=== PATIENT | male | born 1970 | race Caucasian/White ===

== ENCOUNTER 2025-01-20 16:59 | Emergency (ER) | payer MEDICAID, SELFPAY ==
--- OUTSIDE RECORDS SUMMARY | 2025-01-20 17:12 | XMS_ITS | Clinical Summary ---
Author Organization [facility] Address [address] [place] [place] [address] Care Team Providers Care Bias Cutter Helper Name Role Phone Unavailable Primary Care Provider Unavailabl e Source Comments The following information is NOT included in Care Everywhere downloads:Psychiatric notes, ECG results, Cardiac Rehab notes, Pulmonary Function notes, data from [employer] (includes but not limited toPregnancy data,audiograms, eye exams, pre-surgical evaluation notes, well-child exam data).[facility] Allergies No known active allergies Medications albuterol (PROVENTIL HFA) INHALATION HFA inhaler (VENTOLIN,PROAI R,PROVENTIL) 90mcg Inhale 2 Puffs by mouth every 4 hours as needed. 05/23/2024 Active ARIPiprazole (ABILIFY) 20 MG tablet Take 20 mg by mouth daily. 11/08/2023 Active aspirin 81 MG chewable tablet Take 81 mg by mouth daily. Active atorvastatin (LIPITOR) 20 mg tablet Take 20 mg by mouth at bedtime. 05/13/2023 Active bictegravir-emt ricitab-tenofov (Biktarvy) 50-200-25 MG TABS tablet Take 1 Tablet by mouth daily. 04/13/2024 Active CARvedilol (COREG) 6.25 MG tablet Take 6.25 mg by mouth 2 times daily (with meals). 05/24/2023 Active fluticasone (FLONASE) 50 mcg/act nasal inhaler 1 [place] at bedtime. 04/20/2024 Active gabapentin (NEURONTIN) 100 MG capsule Take 100 mg by mouth 2 times daily. 04/13/2024 Active pantoprazole (PROTONIX) 20 MG tablet Take 20 mg by mouth daily. 11/08/2023 Active trazodone (DESYREL) 100 MG tablet Take 100 mg by mouth at bedtime. Active sildenafil citrate (VIAGRA) 50 MG tablet Take 50 mg by mouth as needed. 11/02/2022 Active hydrOXYzine (ATARAX) 25 MG tablet Take 1 Tablet by mouth every 6 hours as needed for Anxiety. 30 Tablet 05/28/2024 1:01 PM EST 05/28/2024 Active benzonatate (TESSALON) 200 MG capsule Take 1 Capsule by mouth 3 times daily as needed (cough). 30 Capsule 05/28/2024 1:01 PM EST 05/28/2024 Active Active Problems Problem Noted Date Diagnosed Date Hypoxia 05/25/2024 Assessment & Plan (05/27/2024 3:43 PM EST): -ED reported O2 sat 89% in ED when ambulating -CXR with no acute findings -titrate supplemental oxygen to maintain SpO2>92% -weaned to RA today, was able to maintain SpO2 at 91% -will attempt WOPX today if feeling winded / SOB can defer until tomorrow Assessment & Plan (05/26/2024 8:17 AM EST): -ED reported O2 sat 89% in ED when ambulating -CXR with no acute findings -walking pulse ox prior to dischage Assessment & Plan (05/25/2024 6:49 PM EST): -ED reported O2 sat 89% in ED when ambulating -CXR with no acute findings -walking pulse ox prior to dischage RSV bronchiolitis 05/25/2024 Assessment & Plan (05/27/2024 7:15 AM EST): - +RSV 05/23, recently treated at -CXR with no acute findings -Afebrile , Leukocytosis 21.5, 17.2 improving likely steroid induced vs infectious process -respiratory glass bulb silverer, IS, BPH -continue Mucinex, prednisone Assessment & Plan (05/26/2024 12:24 PM EST): - +RSV 1, recently treated at -CXR with no acute findings -Afebrile , Leukocytosis 21.5 likely steroid induced vs infectious process -respiratory glass bulb silverer, IS, BPH -continue Mucinex, prednisone Assessment & Plan (05/25/2024 6:49 PM EST): +for RSV 05/23 -CXR with no acute findings -respiratory glass bulb silverer, IS, BPH -continue Mucinex -continue prednisone Asymptomatic HIV infection, with no history of HIV-related illness 05/25/2024 Assessment & Plan (05/27/2024 7:15 AM EST): -continue Biktarvy Assessment & Plan (05/26/2024 8:17 AM EST): -continue Biktarvy Assessment & Plan (05/25/2024 6:49 PM EST): -continue Biktarvy Gastroesophageal reflux disease 05/25/2024 Assessment & Plan (05/27/2024 7:15 AM EST): -continue PPI Assessment & Plan (05/26/2024 8:17 AM EST): -continue PPI Assessment & Plan (05/25/2024 6:49 PM EST): -continue PPI Smoker 05/25/2024 Tobacco use 05/25/2024 Assessment & Plan (05/27/2024 7:15 AM EST): -cessation encouraged -nicotine patch Assessment & Plan (05/26/2024 8:17 AM EST): -cessation encouraged -nicotine patch Assessment & Plan (05/25/2024 6:49 PM EST): -cessation encouraged -nicotine patch Polysubstance abuse 06/01/2023 Assessment & Plan (05/27/2024 7:15 AM EST): -currently lives in [facility] for substance abuse Assessment & Plan (05/26/2024 8:17 AM EST): -currently lives in [facility] for substance abuse Assessment & Plan (05/25/2024 6:49 PM EST): -currently lives in [facility] for substance abuse Hypertension 04/28/2023 Assessment & Plan (05/27/2024 7:15 AM EST): -continue coreg 6.25 mg BID Assessment & Plan (05/26/2024 8:17 AM EST): -continue coreg 6.25 mg BID Assessment & Plan (05/25/2024 6:49 PM EST): -continue coreg 6.25 mg BID Borderline personality disorder 03/25/2023 Assessment & Plan (05/27/2024 7:15 AM EST): -continue Abilify 20 mg daily Assessment & Plan (05/26/2024 8:17 AM EST): -continue Abilify 20 mg daily Assessment & Plan (05/25/2024 6:49 PM EST): -continue Abilify 20 mg daily Anxiety 02/22/2023 Assessment & Plan (05/27/2024 7:15 AM EST): -continue atarax PRN Assessment & Plan (05/26/2024 8:17 AM EST): -continue atarax PRN Assessment & Plan (05/25/2024 6:49 PM EST): -continue atarax PRN Mixed hyperlipidemia 01/30/2023 Assessment & Plan (05/27/2024 7:15 AM EST): -continue asa and statin Assessment & Plan (05/26/2024 8:17 AM EST): -continue asa and statin Assessment & Plan (05/25/2024 6:49 PM EST): -continue asa and statin ADHD (attention deficit hyperactivity disorder) 01/30/2023 Perirectal abscess 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 No 05/25/2024 Humiliation, Afraid, Rape, and Kick questionnair e Answer Date Recorded Fear of Current or Ex-Partner Not on file Within the last year, have y ou been humiliated or emotionally abused in other ways by your partner or ex-partner? No 05/25/2024 Physically Abused Not on file 05/25/2024 Sexually Abused Not on file 05/25/2024 Hunger Vital Sign Answer Date Recorded Within the past 12 months, y ou worried that your food would run out before you got the money to buy more. Sometimes true Ran Out of Food in the Last Year Not on file 05/25/2024 PRAPARE - Transportation Answer Date Re corded In the past 12 months, has l ack of transportation kept you from medical appointments or from getting medications? Yes 05/25/2024 Lack of Transportation (Non-Medical) Not on file 05/25/2024 Housing Stability Vital Sign Answer Nasim e Recorded In the last 12 months, was t here a time when you were not able to pay the mortgage or rent on time? No 05/25/2024 Number of Times Moved in the Last Year Not on fi le 05/25/2024 Homeless in the Last Year Not on file 2024 Utilities - Historical Answer Date Jhonatan rded In the past 12 months has th e Cir[employer], oil, or water Desigual threatened to shut off services in your home? No 05/25/2024 Sex and Gender Information Value Date Recorded Sex Assigned at Not on file Legal Sex Male 3:19 PM EST Gender Identity Not on file Sexual Orientation Not on file Last Filed Vital Signs Vital Sign Reading Time Taken Comments Blood Pressure 114/80 05/28/2024 8:10 AM EST Pulse 84 05/28/2024 11:56 AM EST Temperature 36.6 C (97.9 F) 05/28/2024 8:10 AM EST Respiratory Rate 20 05/28/2024 11:5 6 AM EST Oxygen Saturation 92% 05/28/2024 8:10 AM EST Inhaled Oxygen Concentration - - Weight 103.9 kg (229 lb 1.6 oz) 05/25/2024 6:37 PM EST Height 172.7 cm (5' 8 ) 05/25/2024 5:45 PM EST Body Mass Index 34.83 05/25/2024 5:45 PM EST Plan of Treatment Health Maintenance Due Date Last Done Comments Anal Pap 1969 CD4 Count 1969 Colonoscopy 1969 Dental Visit/Referral 1969 HIV Counseling 1969 HIV Viral Load 1969 Hepatitis A Antibody 1969 Hepatitis B Surface Antibody 1969 Hepatitis B Surface Antigen 1969 Syphilis Test 1969 TB Test 1969 Toxoplasma IgG 1969 Urine Total Protein (HIV) 1969 Meningococcal Conjugate (MCV4,ACWY) Vaccine (1 - Risk 2-dose series) 09/10/1971 COVID-19 Vaccine (#1) 1974 STI Screening (HIV) 1985 Hepatitis C Antibody 09/10/1987 Tdap Booster 09/10/1987 Pneumococcal Vaccine(s) (50+ yrs) (1 of 2 - PCV) 1988 Shingles (RZV) Vaccine (1 of 2) 1988 CRC Screening 2014 Cologuard (Stool DNA) 2014 FIT 2014 Hepatitis B (HBV) Vaccine (3 of 3 - 19+ 3-dose series) 06/13/2019 04/18/2019, 04/28/2018 Lipid Profile 04/28/2024 04/28/2023 HIV Depression Screening 08/23/2024 HIV EtOH Screening 08/23/2024 HIV SA Screening 08/23/2024 Influenza Vaccine (#1) 2025 03/10/2020 Basic Metabolic Panel 05/28/2025 05/28/2024 , 05/26/2024, 05/25/2024, Additional history exists Hepatitis A (HAV) Vaccine Completed 02/06/2019, Haemophilus Influenza B (Hib) Vaccine Aged Out No longer eligible based on patient's age to complete this topic Procedures Procedure Name Priority Date/Time Associated Diagnosis Comments BASIC METABOLIC PANEL Routine 05/28/2024 3:25 AM EST from Last 3 Months or Most Recently Relevant to Health Maintenance Results * BASIC METABOLIC PANEL (05/28/2024 3:25 AM EST) Glucose 84 74 - 109 mg/dL 05/28/2024 4:50 AM EST [facility] Sodium 139 136 - 145 mmol/L 05/28/2024 4:50 AM EST [facility] Potassium 4.1 3.5 - 5.0 mmol/L 05/28/2024 4:50 AM EST [facility] Carbon Dioxide 30 21 - 31 mmol/L 05/28/2024 4:50 AM EST [facility] Chloride 103 98 - 107 mmol/L 05/28/2024 4:50 AM EST [facility] Blood Urea Nitrogen 22 7 - 25 mg/dL 05/28/2024 4:50 AM EST [facility] Creatinine 0.82 0.70 - 1.30 mg/dL 05/28/2024 4:50 AM EST [facility] Calcium 8.9 8.6 - 10.3 mg/dL 05/28/2024 4:50 AM EST [facility] Anion Gap 10 - 05/28/2024 4:50 AM EST [facility] Estimated GFR (CKD-EPI) 104 >=60 mL/min/1. 73sqm 05/28/2024 4:50 AM EST [facility] Comment: 2020 CKD EPI Equation using Creatinine without Race Comment: Estimated glomerular filtration rate (eGFR) is calculated without a race coefficient. Values should be interpreted in the context of the patient's full clinical presentation. Reference: 1. Jose A C, Concha M, Thomas DE JESUS, et al.. A Unifying Approach for GFR Estimation: Recommendations of the NKF-ASN Task Force on Reassessing the Inclusion of Race in Diagnosing Kidney Disease. [place] Journal of Kidney Diseases 202;79(2):268- 88.e1. 2. N Engl J Med 2021 Vol. 385 Issue 19 Pages 8125-9788 Blood BLOOD SPECIMEN / Unknown Venipuncture / Unknown 05/28/2024 3:25 AM EST 05/28/2024 4:14 AM EST Johnathon Simth RESIDENCE MANAGER-DYED YARN OPERATOR 98 GENERAL LAB Final Res ult [facility] [address] from Last 3 Months or Most Recently Relevant to Health Maintenance Insurance [facility] MEDICAID Advance Directives * Full Code (Latest Code Status on File) Date Activated Date Inactivated Comments 05/25/2024 6:38 PM 05/28/2024 4:40 PM Question Answer Comments Documentation of decision pr ocess for this code status: Discussed with patient or surrogate. This is the code status chosen by the patient/surrogate.
--- OUTSIDE RECORDS SUMMARY | 2025-01-20 17:12 | XMS_ITS | Clinical Summary ---
Author Organization [facility] Address [address] [id number] Care Team Providers Care Director Of Retention Name Role Phone Shahriar Shah DO Unavailable [phone] Nusrat Michaud Primary Care Provider [phone] Allergies No known active allergies Medications cariprazine (VRAYLAR) 4.5 mg capsule Take 20 mg in the morning and also Take 4.5 mg at bedtime 60 capsule 4 Active bictegravir-emtr icitabine-tenofo vir alafenamide (BIKTARVY) 50-200-25 mg per tablet Take 1 tablet by mouth once daily. 30 tablet 5 4 Active carvedilol (COREG) 6.25 mg tablet Take 1 tablet by mouth two times a day with meals. 60 tablet 2 4 Active gabapentin (NEURONTIN) 100 mg capsule Take 1 capsule by mouth two times a day for 90 days. 60 capsule [address] (PROTONIX) 20 mg tablet Take 1 tablet by mouth once daily. 30 tablet 2 4 Active atorvastatin (LIPITOR) 20 mg tablet Take 1 tablet by mouth daily at bedtime. 30 tablet 2 4 Active azithromycin (ZITHROMAX Z-DAVID) 250 mg tablet Two (2) tablets by mouth the first day and then one (1) tablet by mouth daily for 4 days. 6 tablet 4 Active dextromethorphan -guaiFENesin (MUCINEX DM) 30-600 mg per tablet Take 1 tablet by mouth two times a day. 20 tablet 4 Active fluticasone (FLONASE) 50 mcg/actuation nasal spray Use 1 [place] in each nostril daily at bedtime. 16 g 4 Active albuterol HFA (PROVENTIL HFA, VENTOLIN HFA) 90 mcg/actuation inhaler Inhale 2 Puffs as instructed every 6 hours as needed for wheezing/shortn ess of breath. 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 DDD (degenerative disc disease), cervical 2014 Arthritis Neck pain Shoulder pain Smoker Family History Medical History Relation Comments Diabetes Father Hypertension Father Relation Status Comments Father Social History Tobacco Use Types Packs/Day Years Used Date Smoking Tobacco: Every Day Cigarettes 1 33 Tobacco Cessation:Ready to Q uit: Not Asked; Counseling Given: Not Answered Alcohol Use Standard Drinks/Week Comments Not Currently 0 (1 standard drink = 0.6 oz pur e alcohol) social Hunger Vital Sign Answer Date Recorded Within the past 12 months, y ou worried that your food would run out before you got the money to buy more. Never true 05/23/19 25 Ran Out of Food in the Last Year Not on file 05/23/2024 Area Deprivation Index Answer Date Jhonatan rded National Score (1-100), lower number is lower ri sk 97 06/28/2024 State Score (1-10), lower number is lower risk 1 0 06/28/2024 Data from: https://www.neighborhoodatlas.medicine.[facility].edu/. 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 Not on file Not on file Not on fi le Last Filed Vital Signs Vital Sign Reading Time Taken Comments Blood Pressure 127/75 05/23/2024 3:58 PM EST Pulse 110 05/23/2024 3:58 PM EST Temperature 36.9 C (98.5 F) 05/23/2024 1:13 PM EST Respiratory Rate 26 05/23/2024 3:58 PM EST Oxygen Saturation 93% 05/23/2024 3:58 PM EST Inhaled Oxygen Concentration - - Weight 105.9 kg (233 lb 7.5 oz) 07/30/2024 2:13 PM EDT Height 171.1 cm (5' 7.36 ) 07/30/2024 2:13 PM ED T Body Mass Index 36.17 07/30/2024 2:13 PM EDT Plan of Treatment Health Maintenance Due Date Last Done Comments Meningococcal Conjugate Vaccine (1 - Risk 2-dose series) 09/10/1971 Anxiety Screening 09/10/1987 Depression Screening 09/10/1987 Hepatitis C Screening 09/10/1987 MMR Vaccine (1 of 2 - Risk 2-dose series) 09/10/1987 DTaP,Tdap,Td Vaccine (1 - Tdap) 1988 Pneumococcal Vaccine: 50+ (1 of 2 - PCV) 1988 Shingrix Vaccine (1 of 2) [address] Colonography 2014 Cologuard (FIT-DNA) 2014 Colonoscopy 2014 Colorectal Cancer Screening 2014 Fecal Occult Blood 2014 Prostate Cancer Screening Discussion 2014 Sigmoidoscopy 2014 Hepatitis B Vaccine (3 of 3 - 19+ 3-dose series) 06/13/2019 04/18/2019, 04/28/2018 Lung Cancer Screening 09/10/2019 Influenza Vaccine (#1) 2025 03/10/2020 Diabetes Screening 05/28/2027 05/28/2024, 0 05/28/2024, 05/26/2024, Additional history exists Hepatitis A Vaccine Completed 02/06/2019, 01/21/2019, 04/28/2018 Hib Vaccine Aged Out No longer eligi ble based on patient's age to complete this topic Procedures Procedure Name Priority Date/Time Associated Diagnosis Comments COMPREHENSIVE METABOLIC PANEL STAT 05/23/2024 1:47 PM EST from Last 3 Months or Most Recently Relevant to Health Maintenance Results * (ABNORMAL) COMPREHENSIVE METABOLIC PANEL (05/23/2024 1:47 PM EST) Protein, Total 7.1 6.3 - 8.0 g/dL 05/23/2024 2:13 PM EST [facility] Albumin 4.0 3.9 - 4.9 g/dL 05/23/2024 2:13 PM EST [facility] Calcium, Total 8.8 8.5 - 10.2 mg/dL 05/23/2024 2:13 PM EST [facility] Bilirubin, Total 0.3 0.2 - 1.3 mg/dL 05/23/2024 2:13 PM EST [facility] Alkaline Phosphatase 124(H) 38 - 113 U/L 05/23/2024 2:13 PM EST [facility] AST 21 14 - 40 U/L 05/23/2024 2:13 PM EST [facility] ALT 28 10 - 54 U/L 05/23/2024 2:13 PM EST [facility] Glucose 116(H) 74 - 99 mg/dL 05/23/2024 2:13 PM EST [facility] Comment: The [place] Diabetes Association (ADA) provides guidance for cutoff values for fasting glucose and random glucose. The ADA defines fasting as no caloric intake for at least 8 hours. Fasting plasma glucose results between 100 to 125 mg/dL indicate increased risk for diabetes (prediabetes). Fasting plasma glucose results greater than or equal to 126 mg/dL meet the criteria for diagnosis of diabetes. In the absence of unequivocal hyperglycemia, results should be confirmed by repeat testing. In a patient with classic symptoms of hyperglycemia or hyperglycemic crisis, random plasma glucose results greater than or equal to 200 mg/dL meet the criteria for diagnosis of diabetes. Reference: Standards of Medical Care in Diabetes 2016, [place] Diabetes Association. Diabetes Care. 2016.39(Suppl 1). BUN 14 9 - 24 mg/dL 05/23/2024 2:13 PM EST [facility] Creatinine 1.10 0.73 - 1.22 mg/dL 05/23/2024 2:13 PM EST [facility] Sodium 142 136 - 144 mmol/L 05/23/2024 2:13 PM EST [facility] Potassium 3.8 3.7 - 5.1 mmol/L 05/23/2024 2:13 PM EST [facility] Chloride 105 98 - 107 mmol/L 05/23/2024 2:13 PM EST [facility] CO2 28 22 - 30 mmol/L 05/23/2024 2:13 PM EST [facility] Anion Gap 9 8 - 15 mmol/L 05/23/2024 2:13 PM EST [facility] Estimated Glomerular Filtration Rate 80 >=60 mL/min/1. 73m 05/23/2024 2:13 PM EST [facility] Comment:Estimated Glomerular Filtration Rate (eGFR) is calculated using the 2020 CKD-EPI creatinine equation. This equation utilizes serum creatinine, sex, and age as parameters. The creatinine assay has traceable calibration to isotope dilution- mass spectrometry. Refer to KDIGO guidelines for clinical interpretation. In patients with unstable renal function, e.g. those with acute kidney injury, the eGFR may not accurately reflect actual GFR. Blood BLOOD SPECIMEN / Unknown Venipuncture / Unknown 05/23/2024 1:47 PM EST 05/23/2024 1:51 PM EST us Marysol Santamaria DO LABORATORY Final R esult [facility] [address] [place] [address], from Last 3 Months or Most Recently Relevant to Health Maintenance Insurance [employer] Care Teams Director Of Retention Relationship Specialty Start Date End Date Nusrat Michaud [address] [facility] [address] PCP - General Family Medicine 05/23/24 Shahriar Shah DO Referring Orthopedics 04/10/15
--- OUTSIDE RECORDS SUMMARY | 2025-01-20 17:12 | XMS_ITS | Clinical Summary ---
Author Organization [facility] Address [address] [place] [address] Care Team Providers Care Piece Dyeing Machine Tender Name Role Phone Unavailable Primary Care Provider Unavailabl e Source Comments PLEASE NOTE, if this patient is a minor, it may be UNLAWFUL to discuss sensitive information that is contained in these records (such as FAMILY PLANNING, MENTAL HEALTH or SUBSTANCE ABUSE) with the minor patient's parent or other person without the patient's specific authorization.[facility] Medications carvediloL (COREG) 6.25 mg tabletIndications :Primary hypertension Take 1 Tablet by mouth 2 (two) times daily with a meal 60 Tablet 1 07/10/2024 Active BIKTARVY 50-200-25 mg tabIndications:HI V infection, unspecified symptom status (CMS & HHS-HCC) TAKE 1 TABLET BY MOUTH DAILY 30 Tablet 08/24/2024 Active pantoprazole (PROTONIX) 20 mg EC tablet TAKE 1 TABLET BY MOUTH DAILY 30 Tablet 09/03/2024 Active Encounters Date Type Department Care Team Description 11/22/2024 Interim Notes Care [place] [id number] [facility] [address] [place] [address] [place] from Last 3 Months Social History Tobacco Use Types Packs/Day Years Used Date Smoking Tobacco: Every Day Cigarettes Tobacco Cessation:Ready to Q uit: No; Counseling Given: Yes Comments:Smoking 2 cigarette daily. Sex and Gender Information Value Date Recorded Sex Assigned at Male 06/02/2024 7:55 PM PST Legal Sex Male 7:55 PM PST Gender Identity Male 06/02/2024 7:55 PM PST Sexual Orientation Bisexual 06/02/2024 7: 55 PM PST Last Filed Vital Signs Vital Sign Reading Time Taken Comments Blood Pressure 126/85 07/10/2024 1:11 PM EST Pulse 100 07/10/2024 1:11 PM EST Temperature 36.9 C (98.4 F) 07/10/2024 1:11 PM EST Respiratory Rate 18 07/10/2024 1:11 PM EST Oxygen Saturation 96% 07/10/2024 1:11 PM EST Inhaled Oxygen Concentration - - Weight - - Height 172.7 cm (5' 8 ) 07/10/2024 1:11 PM EST Body Mass Index - - Plan of Treatment Health Maintenance Due Date Last Done Comments Anxiety Screening 1969 Hepatitis B Screening 1969 Hepatitis C Screening 1969 LTBI Screening (#1) 1969 Lipid Screening 1969 Imm-Meningococcal (1 - Risk 2-dose series) 09/10/1971 Imm-MMR (1 of 2 - Risk 2-dose series) 09/10/1987 Imm-DTaP/Tdap/Td (1 - Tdap) 1988 Imm-Pneumococcal 50+ (1 of 2 - PCV) 1988 Imm-Zoster, Recombinant (1 of 2) 1988 CT Colonography 2014 Colonoscopy 2014 Colorectal Cancer Screening 2014 FIT/gFOBT 2014 Fecal DNA 2014 Flexible Sigmoidoscopy 2014 Imm-Hepatitis B (3 of 3 - 19+ 3-dose series) 06/13/2019 04/18/2019, 04/28/2018 HIV Screening 01/25/2020 01/24/2019 Alcohol and Drug Screen 05/09/2024 Depression Annual Screen 05/09/2024 [id number] ( - season) 2025 Imm-Influenza (#1) 2025 03/10/2020 Tobacco Cessation Counseling (#1) 07/10/2025 07/10/2024 Diabetes Screening 05/28/2027 05/28/2024, 0 05/28/2024, 05/26/2024, Additional history exists Imm-Hepatitis A Completed 02/06/2019, 01/07, 04/28/2018 Imm-HIB Aged Out No longer eligi ble based on patient's age to complete this topic
[2025-01-20 17:29] VITALS: BP 119/83; PULSE 104; TEMP 37.4; O2SAT 94; BMI 35.0
[2025-01-20 18:08] LABS: SARS-CoV-2 Ag POSITIVE (NEGATIVE)
--- NOTE | 2025-01-20 18:31 | ED_ITS ---
HPI HPI - General Adult General Chief complaint: Eye Problems Stated complaint: EYE, EAR, THROAT IS HURTING Time Seen by Provider: 01/20/25 18:01 Source: patient Mode of arrival: walk-in Limitations: no limitations History of Present Illness HPI narrative: 54-year-old male presents with cough, nasal congestion, right ear pain, and right eye discharge for the past 2 days. He reports whitish eye discharge without vision changes. No blurry vision or missing villeda of vision. Mild non specific headache. He feels febrile at home and has chills with body aches, though has not measured temperature or taken [id number] medications. Denies chest pressure, shortness of breath, abdominal pain, nausea, vomiting, diarrhea, or other associated symptoms. Nothing makes symptoms better or worse. No prior interventions attempted.. Related Data Home Medications ?Medication ?Instructions ?Recorded ?Confirmed alprazolam 0.5 mg tablet 0.5 mg PO .q 12 PRN anxiety 01/20/25 01/20/25 atorvastatin 20 mg tablet 20 mg PO QAM 01/20/25 bictegravir 50 mg-emtricitabine 1 tab PO QAM 01/20/25 01/20/25 200 mg-tenofovir alafenam 25 mg tablet (Biktarvy) buspirone 10 mg tablet 10 mg PO .q8 01/20/25 cariprazine 3 mg capsule (Vraylar) 3 mg PO Q24H 01/20/25 carvedilol 6.25 mg tablet 6.25 mg PO Q12H 01/20/25 gabapentin 100 mg capsule 100 mg PO Q12H 01/20/2501/07 magnesium oxide 400 mg (241.3 mg 400 mg PO QDAY 01/20/25 magnesium) tablet multivitamin-ferrous 1 tab PO Q24H 01/20/2501/20 fumarate-folic acid 18 mg-400 mcg tablet (Tab-A-Marty Multivitamin w-iron) pantoprazole 20 mg tablet,delayed 20 mg PO QDAY 01/20/25 release sildenafil 100 mg tablet 100 mg PO Q24H PRN erectile 01/20/25 01/20/25 dysfunction trazodone 100 mg tablet 100 mg PO .qhs PRN insomnia 01/20/25 01/20/25 Previous Rx's ?Medication ?Instructions ?Recorded dextromethorphan-guaifenesin 30 1 tab PO Q12H PRN coug h #14 tabs 01/20/25 mg-600 mg tablet extended [id number] hr (Mucinex DM) ipratropium bromide 21 mcg (0.03 2 spray intranasal TI D #30 mL 01/20/25 %) nasal spray moxifloxacin 0.5 % eye drops 1 drp ophthalmic (eye) TI D 7 days 01/20/25 (Vigamox) #3 mL Allergies Allergy/AdvReac Type Severity Reaction Status Date / Time No Known Drug Allergies Allergy Verified 01/20/25 17:22 Opioid HPI Opioid Management Most Recent Opioid Data: Last Pain Scale 5 Today, 17:29 PFSH PFSH Social History Little interest or pleasure in doing things: not at all Feeling down, depressed, or hopeless: not at all Exam Narrative Exam Narrative: Exam: * General: Appears ill but in no acute distress, alert and oriented ?3 * HEENT: * Right eye: white discharge from eye consistent with conjunctivitis, conj unctiva not significantly injected, no photophobia * Sinuses: No tenderness on percussion * TMs: Bulging, no erythema * Nasal congestion with clear secretions * Pharynx: Erythematous, no exudate * No nuchal rigidity, no cervical lymphadenopathy * Cardiac: Regular rate and rhythm, no murmurs * Respiratory: Lungs clear to auscultation, no wheezing or crackles, no respiratory distress * Abdomen: Soft, non-tender, no organomegaly * Skin: Warm, dry, no rashes Constitutional Vital Signs, click to edit/add: Last Vital Signs Temp 99.4 F 01/20/25 17:29 Pulse 104 H 01/20/25 17:29 Resp 16 01/20/25 17:29 BP 119/83 01/20/25 17:29 Pulse Ox 94 L 01/20/25 17:29 O2 Del Method Room Air 01/20/25 17:29 Course Vital Signs Vital signs: Vital Signs Temperature 99.4 F 01/20/25 17:29 Pulse Rate 104 H 01/20/25 17:29 Respiratory Rate 16 01/20/25 17:29 Blood Pressure 119/83 01/20/25 17:29 Pulse Oximetry 94 L 01/20/25 17:29 Oxygen Delivery Method Room Air 01/20/25 17:29 Temperature 99.4 F 01/20/25 17:29 Pulse Rate 104 H 01/20/25 17:29 Respiratory Rate 16 01/20/25 17:29 Blood Pressure 119/83 01/20/25 17:29 Pulse Oximetry 94 L 01/20/25 17:29 Oxygen Delivery Method Room Air 01/20/25 17:29 Medical Decision Making [facility] Narrative Medical decision making narrative: 54-year-old male presents with COVID-19 infection, upper respiratory symptoms, and purulent right eye discharge. Exam shows right eye conjunctivitis, bulging TMs without erythema, erythematous pharynx, clear lungs, and no respiratory compromise. Differential includes bacterial conjunctivitis vs viral conjunctivitis secondary to COVID-19, viral upper respiratory infection from COVID-19, and less likely secondary bacterial sinusitis or otitis media given lack of sinus tenderness and minimal TM findings. Patient is hemodynamically stable and able to tolerate oral intake. Plan: Treat right eye conjunctivitis with moxifloxacin ophthalmic drops, provide supportive care for COVID-19 (hydration, rest, acetaminophen for fever/body aches), and monitor for worsening symptoms. Patient educated on return precautions including vision changes, worsening respiratory status, or high fever. Medical Records Medical records reviewed: Yes I reviewed the patient's medical records Lab Data Lab results reviewed: Yes I reviewed the patient's lab results Labs: Lab Results 01/20/25 Range/Units 17:35 SARS-CoV-2 Ag (CV2AG) Positive A (NEGATIVE) Streptococcus Screen Negative Discharge Plan Discharge Chief Complaint: Eye Problems Clinical Impression: Bacterial conjunctivitis, COVID-19, URI (upper respiratory infection) Patient Disposition: Home, Self-Care Time of Disposition Decision: 18:36 Condition: Good Prescriptions / Home Meds: New ipratropium bromide 21 mcg (0.03 %) spray,non-aerosol 2 spray intranasal TID Qty: 30 0RF Rx Instructions: administer into each nostril Mucinex DM 30-600 mg tablet extended release 12 hr 1 tab PO Q12H PRN (Reason: cough) Qty: 14 0RF moxifloxacin [Vigamox] 0.5 % drops 1 drp ophthalmic (eye) TID 7 Days Qty: 3 0RF No Action alprazolam 0.5 mg tablet 0.5 mg PO .q 12 PRN (Reason: anxiety) atorvastatin 20 mg tablet 20 mg PO QAM Biktarvy 50-200-25 mg tablet 1 tab PO QAM buspirone 10 mg tablet 10 mg PO .q8 Vraylar 3 mg capsule 3 mg PO Q24H carvedilol 6.25 mg tablet 6.25 mg PO Q12H gabapentin 100 mg capsule 100 mg PO Q12H magnesium oxide 400 mg (241.3 mg magnesium) tablet 400 mg PO QDAY Tab-A-Marty Multivitamin w-iron 18-400 mg-mcg tablet 1 tab PO Q24H pantoprazole 20 mg tablet,delayed release (DR/EC) 20 mg PO QDAY sildenafil 100 mg tablet 100 mg PO Q24H PRN (Reason: erectile dysfunction) trazodone 100 mg tablet 100 mg PO .qhs PRN (Reason: insomnia) Print Language: Colombian Instructions: Conjunctivitis (ED), COVID-19 (Coronavirus Disease 2019) (ED) Additional Instructions: Diagnosis: * COVID-19 (mild) * Conjunctivitis ( pink eye ) Medications Prescribed: * Vigamox (moxifloxacin) eye drops: 1 drop in affected eye(s) every 8 hours for 7 days * Atrovent nasal spray: 2 sprays in each nostril every 6 hours as needed for congestion * Sudafed (pseudoephedrine): Take as directed for nasal congestion Home Care Instructions: * Rest & Hydration: Drink plenty of fluids and get adequate rest * Fever/Body Aches: You may use acetaminophen (Tylenol) or ibuprofen if needed * Eye Care: * Wash your hands before and after touching your eyes * Avoid rubbing your eyes * Use warm compresses for comfort * Do not share towels, pillows, or washcloths with others * COVID-19 Precautions: * Stay home until you are fever-free for 24 hours and symptoms are improving * Wear a mask around others if you must leave your home * Practice good hand hygiene When to Seek Medical Care: * Worsening eye pain, swelling, or vision changes * Severe shortness of breath or chest pain * Persistent high fever (>102?F) * Confusion, fainting, or inability to keep fluids down Follow-Up: * Follow up with your primary care provider if symptoms do not improve in 5?7 days * Return to the ER for any worsening symptoms listed above Referrals: Physician,Non-Staff, [Primary Care Provider] - 1 week Discharge Date/Time: 01/20/25 18:56
== END 2025-01-20 18:56 | disposition home or self-care (01) ==
PROVIDERS: Emergency Provider Emergency Medicine
DX: U07.1 COVID-19 (principal); J06.9 Acute upper respiratory infection, unspecified; H10.89 Other conjunctivitis
CPT/HCPCS: 87070; 87077; 87811; 87880; 99284